=== PATIENT | female | born 1960 | race Caucasian/White ===

== ENCOUNTER 2017-01-06 17:45 | Emergency (ER) | payer OTHER ==
--- NOTE | 2017-01-06 18:26 | UC ---
Throat Pain/Nasal Julian HPI - HPI Summary HPI Summary: sore throat and cough for three days- history of thyroid cyst---pain feel deep in throat near thyroid area - History of Current Complaint Chief Complaint: UCGeneralIllness Stated Complaint: SORE THROAT Time Seen by Provider: 01/06/17 18:16 Hx Obtained From: Patient Hx Last Menstrual Period: DONE ?: No Onset/Duration: Lasting Days - 3, Still Present Severity: Mild Pain Intensity: 3 Pain Scale Used: 0-10 Numeric Cough: Nonproductive Associated Signs & Symptoms: Positive: Hoarseness. Negative: Dysphagia, Sinus Discomfort, Fever - Allergies/Home Medications Allergies/Adverse Reactions: Allergies Allergy/AdvReac Type Severity Reaction Status Date / Time Lidocaine Allergy Swelling Verified 01/06/17 18:10 Of Face,Lips,& Throat Sulfa Antibiotics Allergy Rash Verified 01/06/17 18:10 Home Medications: Home Medications Gabapentin CAP(*) [Neurontin 100 mg CAP(*)] 100 mg PO BID 01/06/17 [History Confirmed 01/06/17] Gabapentin CAP(*) [Neurontin 400 mg CAP(*)] 400 mg PO BID 01/06/17 [History Confirmed 01/06/17] PMH/Surg Hx/FS Hx/Imm Hx Previously Healthy: No Endocrine History Of: Reports: Thyroid Disease - Cyst on Thyroid - Surgical History Surgical History: Yes Surgery Procedure, Year, and Place: Uteral biopsey, tubal ligation, nerve block on tail bone. hysteroscopy with D&C. - Family History Known Family History: Positive: Unknown Family History: no reported cardiovascular issues in family lineage - Social History Occupation: Employed Full-time Lives: With Family Alcohol Use: Rare Substance Use Type: None Smoking Status (MU): Never Smoked Tobacco - Immunization History Most Recent Influenza Vaccination: 2012 Review of Systems Constitutional: Fatigue Skin: Negative Eyes: Negative ENT: Sore Throat Respiratory: Cough Cardiovascular: Negative Gastrointestinal: Negative Genitourinary: Negative Motor: Negative Neurovascular: Negative Musculoskeletal: Negative Neurological: Negative Psychological: Negative All Other Systems Reviewed And Are Negative: Yes Physical Exam Triage Information Reviewed: Yes Appearance: Well-Appearing, No Pain Distress, Well-Nourished Vital Signs: Initial Vital Signs Temp 97.5 F 01/06/17 18:02 Pulse 91 01/06/17 18:02 Resp 14 01/06/17 18:02 BP 148/78 03/02/17 18:02 Pulse Ox 100 01/06/17 18:02 Eye Exam: Normal Eyes: Positive: Conjunctiva Clear ENT Exam: Normal ENT: Positive: Normal ENT inspection, Hearing grossly normal, Pharynx normal, TMs normal. Negative: Nasal congestion, Nasal drainage, Tonsillar swelling, Tonsillar exudate, Trismus, Muffled/hoarse voice Dental Exam: Normal Neck exam: Normal Neck: Positive: Supple, Nontender, No Lymphadenopathy, Other: - no thyroid nodules appreciated Respiratory Exam: Normal Respiratory: Positive: Chest non-tender, Lungs clear, Normal breath sounds, No respiratory distress, No accessory muscle use Cardiovascular Exam: Normal Cardiovascular: Positive: RRR, No Murmur, Pulses Normal, Brisk Capillary Refill Musculoskeletal Exam: Normal Musculoskeletal: Positive: Strength Intact, ROM Intact, No Edema Neurological Exam: Normal Neurological: Positive: Alert, Muscle Tone Normal Psychological Exam: Normal Skin Exam: Normal Diagnostics - Laboratory Diagnostic Studies Completed/Ordered: rst(-) Throat Pain/Nasal Course/Dx - Course Assessment/Plan: tylenol, ibuprofen, increase fluids, follow with pcp for further evaluation of thyroid - Differential Dx/Diagnosis Differential Diagnosis/HQI/PQRI: Laryngitis, Otitis Media, Pharyngitis, Sinusitis, URI Provider Diagnoses: URI Discharge - Discharge Plan Condition: Stable Disposition: HOME Patient Education Materials: Decongestant/Expectorant (By mouth), Upper Respiratory Infection (ED), Viral Syndrome (ED) Referrals: Toribio Gentile [Primary Care Provider] - 5 Days
[2017-01-06 18:54] VITALS: BP 131/73
== END 2017-01-06 18:54 | disposition home or self-care (01) ==
LOC: UCCORT 17:45
DX: J06.9 Acute upper respiratory infection, unspecified (principal); Z88.4 Allergy status to anesthetic agent; Z88.2 Allergy status to sulfonamides
CPT/HCPCS: 87651; 99211; G0463

== ENCOUNTER 2017-04-29 09:04 | Emergency (ER) | payer OTHER ==
[2017-04-29 09:40] VITALS: BP 117/74
--- NOTE | 2017-04-29 10:08 | UC ---
Respiratory Complaint HPI - HPI Summary HPI Summary: cough x 5 days + nasal congestion , chest tightness, sob no wheezing , no fever, + chills . - History of Current Complaint Chief Complaint: UCRespiratory Stated Complaint: COUGH Time Seen by Provider: 04/29/17 09:53 Hx Obtained From: Patient Hx Last Menstrual Period: DONE ?: No Onset/Duration: Gradual Onset, Lasting Days - 5, Still Present Severity Initially: Moderate Severity Currently: Moderate Character: Cough: Nonproductive Aggravating Factors: Exertion, Deep Breaths Alleviating Factors: Nothing Associated Signs And Symptoms: Positive: Dyspnea, Chills, URI, Nasal Congestion. Negative: Fever, Pleuritic Chest Pain, Wheezing, Hemoptysis, Dizziness, Calf Pain, Calf Swelling, Edema, Hoarseness, Sinus Discomfort - Allergies/Home Medications Allergies/Adverse Reactions: Allergies Allergy/AdvReac Type Severity Reaction Status Date / Time Lidocaine Allergy Swelling Verified 04/29/17 09:34 Of Face,Lips,& Throat Sulfa Antibiotics Allergy Rash Verified 04/29/17 09:34 Home Medications: Home Medications Biotin W/ Vitamins C & E [Hair Skin & Nails ... 1250-7.5-7.5 Mcg-mg-Unt] 1 chw PO BID 04/29/17 [History Confirmed 04/29/17] Calcium Carbonate-Cholecalcife [Calcium 600 + D 600-200 mg-Unit] 1 tab PO BID [History Confirmed 04/29/17] Loratadine 10 mg PO DAILY 04/29/17 [History Confirmed 04/29/17] PMH/Surg Hx/FS Hx/Imm Hx Previously Healthy: Yes - Surgical History Surgical History: Yes Surgery Procedure, Year, and Place: Uteral biopsey, tubal ligation, nerve block on tail bone. hysteroscopy with D&C. - Family History Known Family History: Positive: Unknown Negative: Diabetes Family History: no reported cardiovascular issues in family lineage - Social History Alcohol Use: Rare Substance Use Type: None Smoking Status (MU): Never Smoked Tobacco - Immunization History Most Recent Influenza Vaccination: 2012 Review of Systems Constitutional: Chills Skin: Negative Eyes: Negative ENT: Sore Throat, Nasal Discharge Respiratory: Cough Cardiovascular: Negative Gastrointestinal: Negative Genitourinary: Negative All Other Systems Reviewed And Are Negative: Yes Physical Exam Triage Information Reviewed: Yes Appearance: Well-Appearing, No Pain Distress, Well-Nourished Vital Signs: Initial Vital Signs Temp 98.7 F 04/29/17 09:37 Pulse 100 04/29/17 09:37 Resp 18 04/29/17 09:37 BP 117/74 04/29/17 09:37 Pulse Ox 100 04/29/17 09:37 Vital Signs Reviewed: Yes Eye Exam: Normal Eyes: Positive: Conjunctiva Clear ENT: Positive: Normal ENT inspection, Hearing grossly normal, Pharynx normal Neck: Positive: Supple, Nontender, No Lymphadenopathy Respiratory: Positive: Chest non-tender, Lungs clear, Normal breath sounds Cardiovascular: Positive: RRR, No Murmur, Pulses Normal Abdominal Exam: Normal Skin Exam: Normal UC Diagnostic Evaluation - Laboratory O2 Sat by Pulse Oximetry: 100 Respiratory Course/Dx - Differential Dx/Diagnosis Provider Diagnoses: bronchitis Discharge - Discharge Plan Condition: Stable Disposition: HOME Prescriptions: Azithromycin TAB* [Zithromax TAB (Z-ERIC) 250 mg #6 tabs] 2 tab PO .TODAY, THEN 1 DAILY #1 eric Guaifenesin-Codeine [Cheratussin AC] 10 ml PO Q8H PRN #120 ml MDD 30 ml PRN Reason: Cough Patient Education Materials: Acute Bronchitis (ED) Referrals: Toribio Gentile [Primary Care Provider] - 5 Days
== END 2017-04-29 10:22 | disposition home or self-care (01) ==
LOC: UCCORT 09:04
DX: J40 Bronchitis, not specified as acute or chronic (principal)
CPT/HCPCS: 99212; G0463